=== PATIENT | female | born 1965 | race Two or more races ===

== ENCOUNTER → 2024-08-11 | Outpatient (CLI) | payer BC, SELFPAY ==
--- NOTE | 2024-08-11 07:30 | XR_ITS ---
Exam: MRI knee without contrast, right Date and time of exam: August 21, 2024 0814 hrs. Indications: Anterior medial knee pain and swelling beginning one year ago Technique: Multiple axial, coronal, and sagittal sections on the knee have been obtained. T2-Weighted sagittal, fat-suppressed images, TR 3,500, TE 62, T2 weighted coronal fat-saturated images, TR 3,500, TE 62 Proton density sagittal sections, TR 1800, TE 31. T-1 weighted coronal images, TR 524, TE 13.0 Findings: Medial meniscus anterior horn intact. Medial meniscus, body is horizontal linear tear communicating inferior articular surface. Posterior horn medial meniscus horizontal linear tear indicate inferior articular surface. Lateral meniscus anterior horn is intact Lateral meniscus, body is intact Posterior horn lateral meniscus is intact Anterior cruciate ligament moderate sprain Posterior cruciate ligament appears intact. Knee effusion is small. Quadriceps and patellar tendons appear intact. There is no evidence of tendinosis. Inflammatory change or fracture of Hoffa's fat pad is not seen. Medial patellar facet demonstrates moderate thinning. Lateral patellar facet cartilage demonstrates moderate thinning. Trochlear cartilage demonstrates moderate thinning. Marrow signal adequate. Medial collateral ligament appears intact. Meniscocapsular separation body medial meniscus Illiotibial band and fibular collateral ligament are intact. Biceps femoris tendons appear intact. Medial femoral condylar articular cartilage demonstrates moderate thinning. Lateral femoral condylar articular cartilage demonstratesmild thinning. Tibial plateau cartilage demonstrates moderate medial thinning. Impression: Tears of the body and posterior horn medial meniscus Meniscocapsular separation body of the medial meniscus Moderate sprain/attenuation anterior cruciate ligament
== END | disposition home or self-care (01) ==
PROVIDERS: PCP Nurse Practitioner Family; Referring Provider Nurse Practitioner Family; Visit Provider Nurse Practitioner Family
DX: S83.241A Other tear of medial meniscus, current injury, right knee, initial encounter (principal); S83.194A Other dislocation of right knee, initial encounter; S83.511A Sprain of anterior cruciate ligament of right knee, initial encounter; X58.XXXA Exposure to other specified factors, initial encounter
CPT/HCPCS: 73721

== ENCOUNTER 2024-10-07 08:09 | Outpatient (AMB) | payer BC, SELFPAY ==
--- NOTE | 2024-10-07 08:27 | ORTHONT_ITS ---
Vital signs 10/07/24 08:28 Height 1.57 m Height Method Stated Weight 60.384 kg Weight Measurement Method Standing Scale BMI 24.3 BP 110/74 Blood Pressure Source Automatic Cuff Blood Pressure Location Left Upper Arm Position Sitting Respiration 19 Pulse 80 Pulse Source Monitor Temp 98.1 F Temp Source Temporal Artery Scan Pulse Oximetry (%) 96 Oxygen Delivery Method Room Air Med/Allergies Allergies & Medications Allergies No Known Allergies Allergy (Verified 10/07/24 08:30) Medication Reconciliation celecoxib 200 mg capsule 200 mg PO BID #60 caps 10/07/24 [Rx] Exam Exam Patient is in no acute distress and is cooperative with the examination today. Breathing is nonlabored. In no respiratory distress. Bilateral extremities were evaluated and demonstrates sensation intact to light touch. Palpable pedal pulses are present. No significant edema is present. Bilateral hips were examined. The patient has no pain with log roll of the hips. Internal rotation to 30 degrees and external rotation to 30 degrees is painless. Negative FADIR. The left knee was examined. The left knee is in varus alignment. Range of motion from 0-115 degrees. Knee is stable to varus and valgus as well as AP translation with <5mm. Patient has a negative McMurrays. There is no pain with patellofemoral compression and no crepitus noted. The knee is tender to palpation medially. The right knee was also examined. The right knee is in varus alignment. Range of motion from 0-120 degrees. Knee is stable to varus and valgus as well as AP tr anslation with <5mm. Patient has a negative McMurrays. There is no pain with patellofemoral compression and no crepitus noted. The knee is tender to palpation medially. I am reviewing an MRI from [facility]. This is dated 08/11/2024. This demonstrates a posterior horn tear of the body of the medial meniscus as well as attenuation of the ACL Assessment and Plan Problem List (1) Arthritis of knee, right: Status: Acute Plan: Patient is a 59-year-old female with right knee pain and right knee arthritis. She has not MRI that demonstrates degenerative changes as well as a medial meniscus tear. We discussed that this is typically treated nonoperatively. I would like to get weightbearing x-rays assess knee arthritis. She demonstrates pain primarily medially over the tibial plateau consistent with arthritis. We discussed the natural history of arthritis in great detail Plan We will order new knee x-rays and give her prescription for Celebrex. 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 Level 4 ([id number]) MA Intake Visit Data Collection New Patient or Established: New Patient (never been to [facility]) Reason for Visit:: RIGHT KNEE PAIN Seen by Clinical Staff ONLY (RN/MA): No PCP or OBGYN visit in last 3 months: Yes Hx Now: No Do You Feel Safe at Home: Yes Authorities Contacted: N/A Questionairres Past Medical History Past Medical History Have you ever been diagnosed with any of the following: Cardiology Problems Congestive Heart Failure: No Respiratory Problems Chronic Obstructive Pulmonary Disease (COPD): No Smoking: No Smoking Exposure: No Genital/Urinary Problems Renal Disease: No Endocrine Problems Diabetes Mellitus Type 1: No Diabetes Mellitus Type 2: No Subjective Visit Visit for: new patient and knee (RIGHT) Immunization / Flu Flu Vaccine in the Last 12 Months: No Flu Vaccine Exclusion Criteria: Refused by Patient History of Present Illness Chief complaint: Bilateral knee pain worse on the right Date of injury / onset of symptoms: 1 YEAR She is a pleasant 59-year-old female with right knee pain. The knee pain has been ongoing for approximately 3 years. She tried physical therapy and a brace. She is not really tried anything else. She reports the pain is on the medial aspect of her knee. 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
[2024-10-07 08:28] VITALS: BP 110/74; PULSE 80; RESP 19; TEMP 36.7; O2SAT 96; BMI 24.3
--- NOTE | 2024-10-07 08:46 | XR_ITS ---
Examination: Bilateral knees 2 views Right lateral knee left lateral knee 2 views Bilateral axial knees single view TECHNIQUE: Bilateral AP knees standing single view, bilateral PA knees standing single view flexion Staining right lateral knee left lateral knee 2 views Bilateral axial knees single view Date and time: October 07, 2024 0852 hours INDICATIONS: Bilateral knee pain beginning 3 years ago. FINDINGS: Mild to moderate narrowing medial joint spaces bilaterally Moderate osteopenia Mild osteoarthritis patellofemoral joints No fractures IMPRESSION: Mild to moderate narrowing medial joint spaces bilaterally
== END 2024-10-07 08:50 | disposition home or self-care (01) ==
PROVIDERS: PCP Nurse Practitioner Family; Referring Provider Nurse Practitioner Family; Supervising Provider Orthopaedic Surgery Adult Reconstructive Orthopaedic Surgery; Visit Provider Orthopaedic Surgery Adult Reconstructive Orthopaedic Surgery
DX: M17.11 Unilateral primary osteoarthritis, right knee (principal); M25.561 Pain in right knee
CPT/HCPCS: 73564; 99204; G0463

== ENCOUNTER 2024-10-21 08:16 | Outpatient (AMB) | payer BC, SELFPAY ==
[2024-10-21 08:34] VITALS: BP 112/76; PULSE 90; RESP 18; TEMP 36.4; O2SAT 97; BMI 24.5
--- NOTE | 2024-10-21 08:34 | ORTHONT_ITS ---
Vital signs 10/21/24 08:34 Height 1.57 m Height Method Stated Weight 60.47 kg Weight Measurement Method Standing Scale BMI 24.5 BP 112/76 Blood Pressure Source Automatic Cuff Blood Pressure Location Left Upper Arm Position Sitting Respiration 18 Pulse 90 Pulse Source Monitor Temp 97.6 F Temp Source Temporal Artery Scan Pulse Oximetry (%) 97 Oxygen Delivery Method Room Air Med/Allergies Allergies & Medications Allergies No Known Allergies Allergy (Verified 10/21/24 08:35) Medication Reconciliation celecoxib 200 mg capsule 200 mg PO BID #60 caps 10/07/24 [Rx Confirmed 10/21/24] Exam Exam Patient is in no acute distress and is cooperative with the examination today. Breathing is nonlabored. In no respiratory distress. Bilateral extremities were evaluated and demonstrates sensation intact to light touch. Palpable pedal pulses are present. No significant edema is present. Bilateral hips were examined. The patient has no pain with log roll of the hips. Internal rotation to 30 degrees and external rotation to 30 degrees is painless. Negative FADIR. The left knee was examined. The left knee is in varus alignment. Range of motion from 0-115 degrees. Knee is stable to varus and valgus as well as AP translation with <5mm. Patient has a negative McMurrays. There is no pain with patellofemoral compression and no crepitus noted. The knee is tender to palpation medially. The right knee was also examined. The right knee is in varus alignment. Range of motion from 0-120 degrees. Knee is stable to varus and valgus as well as AP translation with <5mm. Patient has a negative McMurrays. There is no pain with patellofemoral compression and no crepitus noted. The knee is tender to palpation medially. I am reviewing an MRI from [facility]. This is dated 08/11/2024. This demonstrates a posterior horn tear of the body of the medial meniscus as well as attenuation of the ACL Assessment and Plan Problem List (1) Arthritis of knee, right: Status: Acute Plan: Patient is a 59-year-old female with right knee pain and right knee arthritis. She has done well with nonoperative treatment. I discussed with her we can do a cortisone injection if pain gets worse. We can see her on an as-needed basis as she is very happy with her pain Plan We will see her back on an as-needed basis Office Procedures GNS Level of Care Nursing/Assessment Patient Status: Established Patient Nursing Assessment/Reassesment: Medication Reconciliation, Update PMH in EMR and Vital Signs Coordination of Care: Complex Care and Chronic Disease 1-5, Education Complex Pt/Fam, Consent,records obtained, informed consent, Results/Orders obtained and Staff clarify orders Established Patient Charge Established Patient Point Assignment: 95 Established Patient Point Charge: EP Level 3 (80-115) MA Intake Visit Data Collection New Patient or Established: Established Patient (seen at [facility] within 3 years) Reason for Visit:: XRAY RESULTS Seen by Clinical Staff ONLY (RN/MA): No PCP or OBGYN visit in last 3 months: Yes Hx Now: No Do You Feel Safe at Home: Yes Authorities Contacted: N/A Questionairres Past Medical History Past Medical History Have you ever been diagnosed with any of the following: Cardiology Problems Congestive Heart Failure: No Respiratory Problems Chronic Obstructive Pulmonary Disease (COPD): No Smoking: No Smoking Exposure: No Genital/Urinary Problems Renal Disease: No Endocrine Problems Diabetes Mellitus Type 1: No Diabetes Mellitus Type 2: No Subjective Visit Visit for: follow up visit and x-rays Immunization / Flu Flu Vaccine in the Last 12 Months: No Flu Vaccine Exclusion Criteria: No Exclusion Criteria History of Present Illness Chief complaint: Bilateral knee pain worse on the right Date of injury / onset of symptoms: 1 YEAR She is a pleasant 59-year-old female with right knee pain. The knee pain has been ongoing for approximately 3 years. She tried physical therapy and a brace. She is not really tried anything else. She reports the pain is on the medial aspect of her knee. This typically occurs at the end of the day. Since we last saw her, she reports the pain has almost went away completely with Celebrex. She is very happy and has tapered it recently. 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
== END 2024-10-21 08:51 | disposition home or self-care (01) ==
LOC: HODSRG 08:16
PROVIDERS: PCP Nurse Practitioner Family; Referring Provider Nurse Practitioner Family; Supervising Provider Orthopaedic Surgery Adult Reconstructive Orthopaedic Surgery; Visit Provider Orthopaedic Surgery Adult Reconstructive Orthopaedic Surgery
DX: M17.11 Unilateral primary osteoarthritis, right knee (principal); M25.561 Pain in right knee
CPT/HCPCS: 99213; G0463